=== PATIENT | female | born 2000 | race Caucasian/White ===

== ENCOUNTER 2019-06-20 12:35 | Emergency (ER) | payer BC ==
[2019-06-20 13:07] VITALS: BP 120/71
--- NOTE | 2019-06-20 13:12 | UC ---
Throat Pain/Nasal Aki HPI - HPI Summary HPI Summary: Patient is a 18yo female presenting with boyfriend for complaint of "infection in nose." States she has tenderness, purulent drainage, and mild itching noted inside of her L nostril. States this same thing has occurred a couple times a year since 2016. Patient states she has had the same thing 3 times this year. States she has been seen by primary who states they do not know what causes it but that it may be staph. Patient notes that only doxycycline has cleared it in the past. She also notes that it sometimes is on the outside of the nose. - History of Current Complaint Chief Complaint: [employer] Stated Complaint: NASAL COMPLAINT Hx Obtained From: Patient Hx Last Menstrual Period: 06/2019 Onset/Duration: Sudden Onset Severity: Moderate Pain Intensity: 6 Pain Scale Used: 0-10 Numeric - Allergies/Home Medications Allergies/Adverse Reactions: Allergies Allergy/AdvReac Type Severity Reaction Status Date / Time No Known Allergies Allergy Verified 06/20/19 13:04 Home Medications: Home Medications Apri Control 1 tab PO DAILY 06/20/19 [History Confirmed 06/20/19] PMH/Surg Hx/FS Hx/Imm Hx Previously Healthy: Yes - Surgical History Surgical History: Yes Surgery Procedure, Year, and Place: [place] - Family History Known Family History: Positive: Unknown, Non-Contributory - Social History Alcohol Use: Occasionally Substance Use Type: None Smoking Status (MU): Never Smoked Tobacco Review of Systems All Other Systems Reviewed And Are Negative: Yes Constitutional: Positive: Negative. Negative: Fever, Chills ENT: Positive: Nasal Discharge - purulent drainage from L nare, Other - pain in L nare. Negative: Sore Throat, Ear Ache, Sinus Congestion, Sinus Pain/ Tenderness Respiratory: Positive: Negative Cardiovascular: Positive: Negative Neurological: Positive: Negative Physical Exam Triage Information Reviewed: Yes Appearance: Well-Appearing, No Pain Distress, Well-Nourished Vital Signs: Initial Vital Signs Temp 98.4 F 06/20/19 13:02 Pulse 83 06/20/19 13:02 Resp 14 06/20/19 13:02 BP 120/71 06/20/19 13:02 Pulse Ox 100 06/20/19 13:02 Vital Signs Reviewed: Yes Eyes: Positive: Conjunctiva Clear ENT: Positive: Hearing grossly normal, Pharynx normal, TMs normal, Uvula midline , Other - honey colored crusting surrounded by erythema of L anterior internal nare. tenderness noted. no active drainage. no bleeding.. Negative: Nasal congestion, Nasal drainage Neck exam: Normal Neck: Positive: Supple, Nontender, No Lymphadenopathy Respiratory Exam: Normal Respiratory: Positive: Lungs clear, Normal breath sounds, No respiratory distress Cardiovascular Exam: Normal Cardiovascular: Positive: RRR Neurological: Positive: Alert Psychological: Positive: Age Appropriate Behavior Throat Pain/Nasal Course/Dx - Course Course Of Treatment: I am treating with eliezer for impetigo, as this is what works best for her symptoms per patient. The patient did not have any active drainage today, so I could not perform wound culture. I instructed her to follow up with PCP or ENT referral for persistent symptoms. Patient voiced understanding and agreed with treatment plan. - Differential Dx/Diagnosis Provider Diagnosis: Impetigo Discharge ED - Sign-Out/Discharge Documenting (check all that apply): Patient Departure All imaging exams completed and their final reports reviewed: No Studies - Discharge Plan Condition: Stable Disposition: HOME Prescriptions: DOXYcycline CAP(*) [DOXYcycline 100MG CAP(*)] 100 mg PO BID #14 cap Patient Education Materials: Impetigo (ED) Referrals: Jose Basurto MD [Medical Doctor] - If Needed Additional Instructions: As discussed, take doxycycline for the treatment of your symptoms. You may take ibuprofen as directed for pain relief. Follow up with your primary care physician or the Ear Nose Throat physician listed below for further evaluation if symptoms persist. - Billing Disposition and Condition Condition: STABLE Disposition: Home
== END 2019-06-20 13:32 | disposition home or self-care (01) ==
LOC: UCCORT 12:35
DX: L01.00 Impetigo, unspecified (principal)
CPT/HCPCS: 99202; G0463